=== PATIENT | female | born 1940 | race Caucasian/White ===

== ENCOUNTER 2016-10-06 14:50 | Inpatient (IN) | payer MEDICARE, BC ==
[2016-10-06] MEDS ORDERED: Loratadine 10 MG Tab PO PRN (17:13)
[2016-10-06] MEDS ORDERED: Bisacodyl 10 MG Supp RECTAL PRN (17:13)
[2016-10-06] MEDS ORDERED: Dextran 70/Hypromellose/PF Ophth Soln 0.9 ML UD EYEBOTH PRN (17:13)
[2016-10-06] MEDS ORDERED: Ondansetron 4 MG Tab.DIS PO PRN (17:20)
[2016-10-06] MEDS: Heparin Sodium 5,000 Units/ML Vial SUBCUT SCH (17:44)
[2016-10-06] MEDS: Ferrous Sulfate 325 MG Tab PO SCH (17:45)
[2016-10-06] MEDS: Omeprazole 20 MG Cap.CR PO SCH (17:48)
--- NOTE | 2016-10-06 19:22 | HP ---
CHIEF COMPLAINT: Right intertrochanteric hip fracture, status post internal fixation on 10/03/2016. HISTORY OF PRESENT ILLNESS: This is a 76-year-old female who lives independently, who goes to dialysis over in [place] on Sunday, Sunday, Fridays who suffered a mechanical fall on 10/03/2016 and was transferred to [facility] in [place] for surgical fixation. The patient had acute blood loss anemia after surgery with hemoglobin down to 6.3 at one point on 10/04/2016. She was feeling quite fatigued and nauseous at that time, so she was transfused 2 units of packed red blood cells. Hemoglobin came up to 7.4, after that was stable at 7.5 on discharge. She is quite sleepy when she arrived today. Her blood sugar was not low. She had not received any pain pills after arrival. She had just finished up her dialysis run and it was reported they had taken off more fluid and then transported her to [place], so it was felt she could just be exhausted. She said she was currently in no pain. Her last bowel movement was before she fell, but she admits she has not been eating much. She has not felt short of breath. She has not been coughing. She has been on heparin 5000 units 3 times a day for DVT prophylaxis. PAST MEDICAL HISTORY: Includes chronic kidney disease, stage 5 with a previous renal transplant which failed. The patient also has type 2 diabetes. She has been on higher doses of Lantus, but in [place] was decreased down to 6 units but placed on meal insulin 2 units t.i.d. She has hyperlipidemia. She has severe mitral regurgitation. She has coronary artery disease with previous bypass surgery history. She has major depression, essential hypertension, atrial fibrillation as listed on her chart back in 2012. She has iron-deficiency anemia, secondary hyperparathyroidism. The patient, otherwise, did have her heart surgery back in 2012 with mitral valve repair. The mitral valve repair was back in 08/2012 with a redo sternotomy. At that point, she was on Coumadin. Otherwise, she did have a history of severe pulmonary hypertension. Her echo in 2012 after surgery still showed severe pulmonary hypertension. MEDICATIONS: Includes heparin 5000 units t.i.d., Prilosec 20 mg twice a day, Dulcolax as needed suppositories, Coreg 6.25 b.i.d., oxycodone 1 every 4 to 6 hours as needed for pain, Celebrex 200 mg twice daily for 2 more days, Humalog 2 units 3 times a day, vitamin D 1000 units daily, calcium 1250 daily, cranberry 400 daily, Neurontin 100 in the morning and 300 at bedtime, Effexor 75 mg daily, Lipitor 10 mg daily, Lantus 6 units daily, Ferrlecit injected through dialysis every 2 weeks, Zyrtec 5 mg daily, Tylenol as needed, Centrum Silver as needed, Hectorol injected through dialysis every 2 weeks, Culturelle probiotics, and aspirin 81 mg daily. ALLERGIES: Sulfa drugs. SOCIAL HISTORY: The patient is . She lives independently, but does have a dog. She has 2 sons that live in [place], [facility]. OTHER SURGICAL HISTORY: Includes tonsillectomy, splenectomy listed, sternotomy which was a redo mini for a mitral valve repair 2012, fissurectomy, repairing Achilles tendon, laparotomy, kidney transplant, IM nailing of the right hip, right thumb fracture surgery, coronary artery bypass surgery in 2011, cholecystectomy, cataract extraction, carpal tunnel release, and AV shunt fistula in 2011. FAMILY HISTORY: Father of heart failure. Mother is also . Sister had dementia and Parkinson's, also . REVIEW OF SYSTEMS: As stated in the HPI, otherwise quite difficult to obtain from the patient due to her sedation, although she did wake easily and did answer questions appropriately and she really just had no concerns, otherwise than what was stated in the HPI. PHYSICAL EXAMINATION: Vital Signs: Her weight 68.4 kg, temperature 98.6, pulse 57, blood pressure 123/47, respiratory rate 20, and O2 of 91 on room air. General: She is in no acute distress. Heart: Regular rate and rhythm with murmur. Lungs: Sounds were clear to auscultation bilaterally without crackles or wheezes. Abdomen: Positive bowel sounds. It is soft and nontender. I can feel the kidney in the right lower quadrant area, it is nontender. Extremities: Warm and dry. She has no edema. Her skin overall does have a more great dusky color. Wound was not examined today with the ruby that are in place to be removed 10/17. Mental Status: She is alert. She is orientated. She is aware she is in [place], but she did make a comment that her daughter in law who is now has been watching her dog. LABORATORY DATA: Lab work again reviewed from what was done in [facility] today; her blood sugar on leaving was 172, her glucose 117, BUN 24, creatinine 4.71, sodium 132, potassium 3.2, chloride 92, calcium 8.4, albumin 3. White count 7.9, hemoglobin 7.5, and platelets 166. ASSESSMENT AND PLAN: 1. Right intertrochanteric hip fracture status post intramedullary nailing on 10/03/2016. She is admitted for swing bed cares, remove ruby on 10/17, although she will be transferring to a detention in [place] next week. We will monitor hemoglobin tomorrow. We will have her up and working with therapies. We will continue on heparin 5000 t.i.d. for DVT prophylaxis. 2. Acute blood loss anemia, related to surgery and some probable gigi-fracture bleeding. At this point, hemoglobin still low at 7.5, if it drops further or the patient continues to be significantly fatigued, we may consider transfusion or transfuse especially if under 7. We will get her started on every other day iron. 3. Deconditioning related to hip fracture. She has already worked some with PT today. 4. End-stage renal disease, status post failed renal transplant on hemodialysis Sunday, Sunday, Sunday. Family will take her on Sunday to dialysis. The question is whether she needs midodrine or not. It is not on her discharge med list from [facility], so we will clarify that with her this weekend. 5. Type 2 diabetes, on insulin. I am going to hold meal insulin for now, most likely she will be on increasing doses of Lantus and may not require meal insulin on discharge. We will just see how things go with q.i.d. checks. 6. History of coronary artery disease. We will continue her aspirin. 7. Reported history of atrial fibrillation. Heart rate seem regular at this point, and she is not on Coumadin that might have been related to 1 of her surgeries. PLAN: The patient is admitted for swing bed cares. We will get her up working with therapies. We will get support stockings in place. I will repeat her blood work tomorrow to include a hemoglobin and a potassium level which was mildly low today. Although, she did receive dialysis and is under the care of Nephrology. She elects to be a code level 3, meaning no CPR, no intubation. This was again discussed with her. Her overall prognosis from [place], they reported rehabilitation status was fair, however, I think she will transition over to the detention fine next week. MKA: 10/06/2016 18:27:44 MODL: 10/06/2016 19:14:37 /[id number]
[2016-10-06] MEDS ORDERED: Insulin Glargine,Human Rec. Analog 100 Units/ML 3 ML Pen SUBCUT SCH (20:00)
[2016-10-06] MEDS: Acetaminophen 650 MG Tab.ER PO SCH (20:45)
[2016-10-06] MEDS: Carvedilol 6.25 MG Tab PO SCH (20:46)
[2016-10-06] MEDS: Dextran 70/Hypromellose/PF Ophth Soln 0.9 ML UD EYEBOTH SCH (20:46)
[2016-10-06] MEDS: atorvaSTATin 10 MG Tab PO SCH (20:46)
[2016-10-06] MEDS: Gabapentin 300 MG Cap PO SCH (20:47)
[2016-10-06] MEDS: CRANBERRY PO SCH (20:49)
[2016-10-07] MEDS: Heparin Sodium 5,000 Units/ML Vial SUBCUT SCH ×3 (01:03→16:15)
[2016-10-07] MEDS: Omeprazole 20 MG Cap.CR PO SCH ×2 (06:32→16:09)
[2016-10-07] MEDS: Aspirin 81 MG Tab.EC PO SCH (08:32)
[2016-10-07] MEDS: Calcium Citrate/Vitamin D3 315 MG-250 Unit Tab PO SCH (08:32)
[2016-10-07] MEDS: Acetaminophen 650 MG Tab.ER PO SCH ×2 (08:33→19:34)
[2016-10-07] MEDS: Multivitamins with Iron/Calcium/Folic Acid/Minerals Tab PO SCH (08:33)
[2016-10-07] MEDS: Lactobacillus Rhamnosus GG (Probiotic) Cap PO SCH (08:33)
[2016-10-07] MEDS: Gabapentin 100 MG Cap PO SCH (08:33)
[2016-10-07] MEDS: Carvedilol 6.25 MG Tab PO SCH ×2 (08:34→19:34)
[2016-10-07] MEDS: Cholecalciferol (Vitamin D3) 1,000 Unit Tab PO SCH (08:34)
[2016-10-07] MEDS: Venlafaxine 75 MG Cap.ER PO SCH (08:34)
[2016-10-07] MEDS: CRANBERRY PO SCH (08:35)
[2016-10-07] MEDS: Polyethylene Glycol 3350 Powder 17 GM Packet PO SCH (08:35)
[2016-10-07] MEDS: Dextran 70/Hypromellose/PF Ophth Soln 0.9 ML UD EYEBOTH SCH ×2 (08:38→19:34)
[2016-10-07] MEDS: Cranberry 500 MG Cap PO SCH ×2 (10:09→19:34)
--- NOTE | 2016-10-07 12:30 | PCM.SN ---
- Free Text/Narrative Note: Patient feeling better today, more alert. Not lightheaded but admits only moved from the bed to the chair so far. Hgb 7.1 so down slightly, K was good at 4. She makes very little urine. Hip incision mildly sore but not firm or significantly tender. Plan to continue to monitor repeat hgb again tomorrow if any symptoms and tranfuse if under 7 or she has symptoms of SOB, fatigue, or lightheadedness. Dialysis on Sunday but she says they send her to [facility] for blood. She is on oral iron. She does not recall taking midodrine in the past.
[2016-10-07] MEDS: oxyCODONE 5 MG Tab PO PRN (19:33)
[2016-10-07] MEDS: Gabapentin 300 MG Cap PO SCH (19:35)
[2016-10-07] MEDS: atorvaSTATin 10 MG Tab PO SCH (19:35)
[2016-10-07] MEDS ORDERED: Insulin Glargine,Human Rec. Analog 100 Units/ML 3 ML Pen SUBCUT SCH (20:00)
[2016-10-08] MEDS: Heparin Sodium 5,000 Units/ML Vial SUBCUT SCH ×2 (02:09→08:36)
[2016-10-08] MEDS: Omeprazole 20 MG Cap.CR PO SCH ×2 (06:18→17:09)
[2016-10-08] MEDS: Cranberry 500 MG Cap PO SCH ×2 (08:34→19:33)
[2016-10-08] MEDS: Cholecalciferol (Vitamin D3) 1,000 Unit Tab PO SCH (08:34)
[2016-10-08] MEDS: Lactobacillus Rhamnosus GG (Probiotic) Cap PO SCH (08:34)
[2016-10-08] MEDS: Aspirin 81 MG Tab.EC PO SCH (08:34)
[2016-10-08] MEDS: Multivitamins with Iron/Calcium/Folic Acid/Minerals Tab PO SCH (08:34)
[2016-10-08] MEDS: Gabapentin 100 MG Cap PO SCH (08:34)
[2016-10-08] MEDS: Carvedilol 6.25 MG Tab PO SCH ×2 (08:34→19:34)
[2016-10-08] MEDS: Venlafaxine 75 MG Cap.ER PO SCH (08:34)
[2016-10-08] MEDS: Calcium Citrate/Vitamin D3 315 MG-250 Unit Tab PO SCH (08:34)
[2016-10-08] MEDS: Acetaminophen 650 MG Tab.ER PO SCH ×2 (08:35→19:33)
[2016-10-08] MEDS: oxyCODONE 5 MG Tab PO PRN (08:36)
[2016-10-08] MEDS: Dextran 70/Hypromellose/PF Ophth Soln 0.9 ML UD EYEBOTH SCH ×2 (08:36→19:35)
[2016-10-08] MEDS: Polyethylene Glycol 3350 Powder 17 GM Packet PO SCH (08:37)
[2016-10-08] MEDS: Insulin Aspart 100 Units/ML 3 ML Pen SUBCUT SCH ×2 (11:18→17:09)
--- NOTE | 2016-10-08 12:00 | PCM.SN ---
- Free Text/Narrative Note: BP running slightly higher but diastolic ok, she had a good day yesterday. HR is lower in the 50s so we will not increase coreg. I doubt she would need midodrine before HD she wasn't aware of this when I asked her yesterday. Hgb was 7.1 will see about checking in the AM or if they would check at HD ideally if she needs blood it could be given with HD due to the fluid. Blood sugars running higher so I will increase her lantus up to 12 units and restart the meal insulin at 2 units TID. Hold heparin today will resume tomorrow due to concern for bleeding post fracture and also with her renal failure now between HD runs.
[2016-10-08] MEDS: Ferrous Sulfate 325 MG Tab PO SCH (17:11)
[2016-10-08] MEDS: atorvaSTATin 10 MG Tab PO SCH (19:34)
[2016-10-08] MEDS: Gabapentin 300 MG Cap PO SCH (19:35)
[2016-10-08] MEDS: Insulin Glargine,Human Rec. Analog 100 Units/ML 3 ML Pen SUBCUT SCH (19:36)
[2016-10-08] MEDS ORDERED: Sodium Phosphate,Monobasic/Sodium Phosphate,Dibasic Enema 133 ML Bottle RECTAL ONE (20:00)
[2016-10-09] MEDS: oxyCODONE 5 MG Tab PO PRN ×2 (04:58→13:11)
[2016-10-09] MEDS: Multivitamins with Iron/Calcium/Folic Acid/Minerals Tab PO SCH (11:56)
[2016-10-09] MEDS: Gabapentin 100 MG Cap PO SCH (11:56)
[2016-10-09] MEDS: Cranberry 500 MG Cap PO SCH ×2 (11:56→20:10)
[2016-10-09] MEDS: Cholecalciferol (Vitamin D3) 1,000 Unit Tab PO SCH (11:56)
[2016-10-09] MEDS: Acetaminophen 650 MG Tab.ER PO SCH ×2 (11:56→20:11)
[2016-10-09] MEDS: Lactobacillus Rhamnosus GG (Probiotic) Cap PO SCH (11:56)
[2016-10-09] MEDS: Aspirin 81 MG Tab.EC PO SCH (11:56)
[2016-10-09] MEDS: Carvedilol 6.25 MG Tab PO SCH ×2 (11:57→20:09)
[2016-10-09] MEDS: Venlafaxine 75 MG Cap.ER PO SCH (11:57)
[2016-10-09] MEDS: Polyethylene Glycol 3350 Powder 17 GM Packet PO SCH (11:58)
[2016-10-09] MEDS: Omeprazole 20 MG Cap.CR PO SCH ×2 (11:58→16:53)
[2016-10-09] MEDS: Calcium Citrate/Vitamin D3 315 MG-250 Unit Tab PO SCH (12:01)
[2016-10-09] MEDS: Insulin Aspart 100 Units/ML 3 ML Pen SUBCUT SCH ×3 (12:02→16:59)
[2016-10-09] MEDS: Dextran 70/Hypromellose/PF Ophth Soln 0.9 ML UD EYEBOTH SCH ×2 (12:05→20:10)
[2016-10-09] MEDS: atorvaSTATin 10 MG Tab PO SCH (20:10)
[2016-10-09] MEDS: Insulin Glargine,Human Rec. Analog 100 Units/ML 3 ML Pen SUBCUT SCH (20:12)
[2016-10-09] MEDS: Gabapentin 300 MG Cap PO SCH (20:12)
[2016-10-10] MEDS: Heparin Sodium 5,000 Units/ML Vial SUBCUT SCH ×3 (00:32→21:10)
[2016-10-10] MEDS: Omeprazole 20 MG Cap.CR PO SCH ×2 (06:17→17:37)
[2016-10-10] MEDS: Dextran 70/Hypromellose/PF Ophth Soln 0.9 ML UD EYEBOTH SCH ×2 (07:51→21:10)
[2016-10-10] MEDS: Gabapentin 100 MG Cap PO SCH (07:51)
[2016-10-10] MEDS: Multivitamins with Iron/Calcium/Folic Acid/Minerals Tab PO SCH (07:51)
[2016-10-10] MEDS: Venlafaxine 75 MG Cap.ER PO SCH (07:51)
[2016-10-10] MEDS: Cholecalciferol (Vitamin D3) 1,000 Unit Tab PO SCH (07:51)
[2016-10-10] MEDS: Cranberry 500 MG Cap PO SCH ×2 (07:51→21:07)
[2016-10-10] MEDS: Calcium Citrate/Vitamin D3 315 MG-250 Unit Tab PO SCH (07:51)
[2016-10-10] MEDS: Lactobacillus Rhamnosus GG (Probiotic) Cap PO SCH (07:51)
[2016-10-10] MEDS: Aspirin 81 MG Tab.EC PO SCH (07:51)
[2016-10-10] MEDS: Acetaminophen 650 MG Tab.ER PO SCH ×2 (07:52→21:07)
[2016-10-10] MEDS: Carvedilol 6.25 MG Tab PO SCH ×2 (07:52→21:07)
[2016-10-10] MEDS: Polyethylene Glycol 3350 Powder 17 GM Packet PO SCH (07:53)
[2016-10-10] MEDS: Insulin Aspart 100 Units/ML 3 ML Pen SUBCUT SCH ×3 (08:00→17:38)
[2016-10-10] MEDS ORDERED: Bisacodyl 10 MG Supp RECTAL SCH (09:15)
[2016-10-10] MEDS: Lactulose Soln 10 GM/15 ML 30 ML UD Cup PO SCH ×3 (09:19→21:06)
--- NOTE | 2016-10-10 10:08 | PN ---
Progress Note for VAISHALI SUMMERS Date: 10/10/2016 Room #: VM.202 SUBJECTIVE: This is a 76-year-old on swing bed after a right hip fracture on 10/03/2016. She also had a fall with some sutures in her head. She is not having any headache, but does feel fatigued and tired today. She is also short of breath. Her hemoglobin did drop down to 6.8 this morning, it had been 7.1. She did get her dialysis run yesterday. She did have a slight fever of 100.7 on 10/08/2016, but has not had any further fevers. Otherwise, she is on hemodialysis 3 times a week. She is having quite a bit of pain this morning in her hip. Heparin was on hold due to concern for hematoma and bleeding just for 24 hours, that was restarted this morning. She has been receiving 2 oxycodone per day for pain, but has it available more if requested. OBJECTIVE: Vital Signs: Her temperature this morning is 98.9, pulse 66, blood pressure 123/68, respiratory rate 18, and O2 of 98% on 1 L. General: She is in no acute distress. Heart: Regular rate and rhythm with murmur. Lungs: Sounds are clear to auscultation bilaterally without crackles or wheezes. Abdomen: Positive bowel sounds. Soft and nontender. Extremities: Warm and dry. No edema. No tenderness. Mental Status: She is alert. She is orientated x3. ASSESSMENT AND PLAN: 1. Acute on chronic anemia with symptoms of fatigue and shortness of breath. We will transfuse her 1 unit of packed red blood cells, given that she is dialysis dependent, and makes very little urine. I did try to arrange for transfusion yesterday with dialysis, but nephrologists say they do not do that at [place]. She will get dialyzed again tomorrow. 2. Right intertrochanteric hip fracture, status post hip nailing on 10/03/2016. She will continue with therapy. We will do bed therapies today, because of low hemoglobin, ruby will be removed on 10/17/2016. 3. Scalp hematoma, ruby will be removed today. 4. Deconditioning related to hip fracture. She is planning to go to [facility] tomorrow. 5. End-stage renal disease, status post failed kidney transplant, on dialysis Mondays, Wednesdays and Fridays. 6. Type 2 diabetes, on insulin. Blood sugars are improving. I have increased her Lantus and restarted her meal insulin. 7. History of coronary artery disease. She is status post bypass. She is also on aspirin. 8. Deep vein thrombosis prophylaxis. I will decrease her heparin to twice daily, given the concern for continued bleeding and the slight hematoma around the incision. Otherwise, incision today looks clean and intact with ruby in place. No drainage. No redness or warmth. 9. Constipation. The patient had an enema suppository yesterday. She did not have any results. She is already on Senna Plus 1 twice daily. We will go ahead and start some oral lactulose and give her another suppository today. She has been eating well at least 50%, but mostly 100% of her meals. 10.I will also get the incentive spirometry restarted. MKA: 10/10/2016 09:04:19 MODL: 10/10/2016 09:35:25 /[id number]
[2016-10-10] MEDS: Ferrous Sulfate 325 MG Tab PO SCH (17:37)
[2016-10-10] MEDS: Gabapentin 300 MG Cap PO SCH (21:07)
[2016-10-10] MEDS: atorvaSTATin 10 MG Tab PO SCH (21:10)
[2016-10-10] MEDS: Insulin Glargine,Human Rec. Analog 100 Units/ML 3 ML Pen SUBCUT SCH (21:12)
[2016-10-11 04:21] VITALS: BP 126/56
[2016-10-11] MEDS: Lactobacillus Rhamnosus GG (Probiotic) Cap PO SCH (04:49)
[2016-10-11] MEDS: Omeprazole 20 MG Cap.CR PO SCH (04:49)
[2016-10-11] MEDS: Acetaminophen 650 MG Tab.ER PO SCH (04:49)
[2016-10-11] MEDS: Heparin Sodium 5,000 Units/ML Vial SUBCUT SCH (05:03)
--- NOTE | 2016-11-06 19:37 | DISCH ---
PRIMARY DISCHARGE DIAGNOSES: 1. Right intertrochanteric hip fracture, status post hip nailing on 10/03/2016. 2. Acute on chronic anemia with fatigue and shortness of breath status post 1 unit of packed red blood cells. 3. End-stage renal disease, dialysis dependent. The patient is leaving for the [facility] in [place] for further cares. 4. Scalp hematoma with staple removal. This was related to her initial fall where she broke her hip fracture. 5. Deconditioning. 6. Type 2 diabetes, on insulin. 7. History of coronary artery disease. 8. Deep vein thrombosis prophylaxis. Her heparin was decreased to twice daily by myself, due to some hematoma around her incision site and continued anemia. 9. Constipation, likely due to immobility and pain management. REASON FOR ADMISSION: On the date of admission, this 76-year-old was transferred from [facility] for further PT and OT cares after a hip fracture and surgery. She was found to have low hemoglobin and went down to 6.8 at one point. Therefore, due to her fatigue and tiredness, we did transfuse her. We elected to transfuse just one unit as she was dialysis dependent. The patient did feel slightly better after the transfusion, but was still fatigued. She will have followup with her providers over in [place] as well as ongoing dialysis. DISCHARGE PLANS AND INSTRUCTIONS: She is to follow up with the [facility] physician in [place]. Pain medications were sent from her regional script from [place]. She will have another hemoglobin drawn later this week with further transfusions if less than 7 heparin will continue twice daily to complete another 23 days. Staple removal of the right hip will be on October 17. She will follow up with Orthopedics as previously planned. PT and OT at the [facility] as well. CONSTANTINE: 11/06/2016 13:10:43 MODL: 11/06/2016 19:31:11 /[id number]
== END 2016-10-11 05:15 | DRG 559 ==
LOC: VM.MS 14:50
PROVIDERS: ADMIT Internal Medicine; ATTEND Internal Medicine
PROC: 30233N1 Transfusion of Nonautologous Red Blood Cells into Peripheral Vein, Percutaneous Approach (ICD-10-PCS; principal; 2016-10-10)
DX: S72.144D Nondisplaced intertrochanteric fracture of right femur, subsequent encounter for closed fracture with routine healing (principal); N18.6 End stage renal disease; I12.0 Hypertensive chronic kidney disease with stage 5 chronic kidney disease or end stage renal disease; Z94.0 Kidney transplant status; D62 Acute posthemorrhagic anemia; N25.81 Secondary hyperparathyroidism of renal origin; W19.XXXD Unspecified fall, subsequent encounter; R53.1 Weakness; Z98.890 Other specified postprocedural states; Z66 Do not resuscitate; E11.22 Type 2 diabetes mellitus with diabetic chronic kidney disease; Z79.4 Long term (current) use of insulin; E78.5 Hyperlipidemia, unspecified; I25.10 Atherosclerotic heart disease of native coronary artery without angina pectoris; F32.9 Major depressive disorder, single episode, unspecified; Z99.2 Dependence on renal dialysis; Z88.2 Allergy status to sulfonamides; Z86.79 Personal history of other diseases of the circulatory system; K59.00 Constipation, unspecified
CPT/HCPCS: 36415; 36430; 82962; 84132; 85014; 85018; 85025; 86850; 86900; 86901; 86920; 86922; 94760; 97110-GP; 97161-GP; 97165-GO; A9270-GY; J1644; J1815-GY; P9016